=== PATIENT | female | born 1975 | race American Indian/Alaskan Native ===

== ENCOUNTER 2018-02-25 11:02 | Outpatient (CLI) | payer BC ==
--- NOTE | 2018-02-26 10:15 | Vascular Lab Report ---
Left Lower Extremity Venous Duplex Study: Reason for Exam: Swelling of the left lower extremity. Comments on the Right: A limited duplex study was done of the proximal veins of the right lower extremity. All veins visualized are freely compressible without evidence of internal echogenicity. Flow is spontaneous and phasic throughout. No evidence of acute or chronic thrombus is seen in any of the vessels visualized. Comments on the Left: All veins visualized are freely compressible without evidence of internal echogenicity. Flow is spontaneous and phasic throughout. No evidence of acute or chronic thrombus is seen in any of the vessels visualized. There are nonspecific soft tissue change in the left knee area most compatible with an effusion or Whaley's cyst. Impression: No evidence of acute or chronic deep venous thrombosis in the left lower extremity.
== END 2018-02-25 11:03 | disposition home or self-care (01) ==
LOC: VAS 11:02
PROVIDERS: ATTEND Internal Medicine
DX: I82.409 Acute embolism and thrombosis of unspecified deep veins of unspecified lower extremity (principal); Z91.018 Allergy to other foods